=== PATIENT | male | born 1955 | race Caucasian/White ===

== ENCOUNTER 2020-09-07 12:52 | Emergency (ER) | payer MEDICARE, OTHER ==
[2020-09-07] MEDS ORDERED: Sodium Chloride 0.9% 500 ML IV ONE (13:01)
[2020-09-07] MEDS ORDERED: Ketorolac 30 MG/ML SDV IVPUSH ONE (13:02)
[2020-09-07] MEDS ORDERED: Meclizine 25 MG Tab PO ONE (13:03)
[2020-09-07] MEDS ORDERED: Metoclopramide 10 MG/2 ML SDV IVPUSH ONE (13:03)
[2020-09-07] MEDS ORDERED: diphenhydrAMINE 50 MG/ML SDV IVPUSH ONE (13:03)
[2020-09-07 13:09] VITALS: BP 147/96; PULSE 107
--- NOTE | 2020-09-07 13:11 | EDM.PDOC ---
ED HPI GENERAL MEDICAL PROBLEM - General Chief Complaint: Neuro Symptoms/Deficits Stated Complaint: DIZZYNESS, HEADACHE Time Seen by Provider: 09/07/20 13:11 Source of Information: Reports: Patient History Limitations: Reports: No Limitations - History of Present Illness INITIAL COMMENTS - FREE TEXT/NARRATIVE: 65 yo gentleman who presented to the ER with severe dizziness and headache that started gradually and seem to be getting worsen. Indicates that symptoms started gradually and got progressively worse. Rates headache as 10/10. No chest pain, fever. Reports feeling very dizzy. No vomiting, ear pain or neck pain. No SOB. Presented to the ER due to worsening symptoms worsen Onset: Today Onset Date: 09/07/20 Duration: Day(s): (started earlier today) Location: Reports: Head Quality: Reports: Ache Severity: Severe Improves with: Reports: None Worsens with: Reports: None Associated Symptoms: Reports: Headaches headache Pain Score (Numeric/FACES): 10 - Related Data Allergies Allergy/AdvReac Type Severity Reaction Status Date / Time No Known Allergies Allergy Verified 05/18/16 14:23 Home Meds: Home Meds Aspirin 81 mg PO DAILY 05/18/16 [History] Naproxen 500 mg PO BID #15 tablet 05/18/16 [Rx] Sucralfate [Carafate] 1 gm PO QIDACANDBED #20 ml 05/18/16 [Rx] Meclizine [Antivert] 25 mg PO Q6H PRN #30 tab 09/07/20 [Rx] Metoprolol Tartrate [Lopressor] 12.5 mg PO BID #30 tab 09/07/20 [Rx] traMADol [Ultram] 50 mg PO Q6H PRN #20 tab 09/07/20 [Rx] Past Medical History HEENT History: Reports: Impaired Vision Cardiovascular History: Reports: High Cholesterol Respiratory History: Reports: Sleep Apnea Musculoskeletal History: Reports: Arthritis, Fracture - Past Surgical History Musculoskeletal Surgical History: Reports: Arthroscopic Knee ED ROS GENERAL - Review of Systems Review Of Systems: See Below Constitutional: Reports: No Symptoms HEENT: Reports: No Symptoms Respiratory: Reports: No Symptoms Cardiovascular: Reports: No Symptoms Endocrine: Reports: No Symptoms GI/Abdominal: Reports: No Symptoms : Reports: No Symptoms Musculoskeletal: Reports: No Symptoms Skin: Reports: No Symptoms Neurological: Reports: Dizziness, Headache Psychiatric: Reports: No Symptoms Hematologic/Lymphatic: Reports: No Symptoms Immunologic: Reports: No Symptoms ED EXAM, NEURO - Physical Exam Exam: See Below Exam Limited By: No Limitations General Appearance: Alert, WD/WN, No Apparent Distress Eye Exam: Bilateral Eye: EOMI, PERRL Ears: Normal External Exam, Normal Canal, Hearing Grossly Normal, Normal TMs Nose: Normal Inspection, Normal Mucosa, No Blood Throat/Mouth: Normal Inspection, Normal Lips, Normal Teeth, Normal Gums Head Exam: Atraumatic, Normocephalic Neck: Normal Inspection, Supple, Non-Tender, Full Range of Motion Respiratory/Chest: No Respiratory Distress, Lungs Clear, Normal Breath Sounds Cardiovascular: Normal Peripheral Pulses, Regular Rate, Rhythm, No Edema, No Murmur GI/Abdominal: Normal Bowel Sounds, Soft, Non-Tender, No Organomegaly Neurological: Alert, Normal Mood/Affect, Normal Dorsiflexion, CN II-XII Intact, Normal Plantar Flexion, Normal Gait Back Exam: Normal Inspection, Full Range of Motion Extremities: Normal Inspection, Normal Range of Motion, Non-Tender Psychiatric: Normal Affect, Normal Mood Skin Exam: Warm, Dry, Intact, Normal Color, No Rash Course - Vital Signs Last Recorded V/S: Last Vital Signs Temp 36.7 C 09/07/20 13:05 Pulse 107 H 09/07/20 13:05 Resp 19 09/07/20 13:05 BP 147/96 H 09/07/20 13:05 Pulse Ox 95 09/07/20 13:05 Orthostatic Blood Pressure [ 146/60 Standing] Orthostatic Blood Pressure [ 124/81 Sitting] Orthostatic Blood Pressure [ 135/65 Supine] - Orders/Labs/Meds Orders: Active Orders 24 hr Category Date Time Status EKG Documentation Completion [RC] ASDIRECTED Care 09/07/20 13:01 Active Orthostatic Vital Signs [RC] ASDIRECTED Care 09/07/20 13:01 Active CXR [Chest 1V Frontal] [CR] Stat Exams 09/07/20 13:47 Taken Head wo Cont [CT] Stat Exams 09/07/20 13:00 Taken UA W/MICROSCOPIC [URIN] Stat Lab 09/07/20 12:59 Ordered EKG 12 Lead [EK] Routine Ther 09/07/20 13:00 Ordered Labs: Laboratory Tests 01/02/21 01/02/21 01/02/21 Range/Units 13:35 13:40 13:40 WBC 6.1 (3.2-10.1) x10-3/uL RBC 4.93 (3.90-5.90) x10(6)uL Hgb 14.9 (12.9-17.7) g/dL Hct 46.4 (38.3-50.1) % MCV 94.1 (80.8-98.7) fL MCH 30.3 (27.0-33.3) pg MCHC 32.2 (28.7-35.3) g/dL RDW 14.6 (12.4-15.0) % Plt Count 193 (117-477) x10(3)uL MPV 8.7 (6.7-11.0) fL Neut % (Auto) 68.8 (40.3-71.8) % Lymph % (Auto) 19.3 (15.8-45.3) % Dent % (Auto) 9.8 (5.5-15.2) % Eos % (Auto) 1.4 (0.1-6.8) % Baso % (Auto) 0.7 (0.3-3.8) % Neut # (Auto) 4.2 (1.7-6.9) x10-3/uL Lymph # (Auto) 1.2 (0.5-4.5) x10-3/uL [place] # (Auto) 0.6 (0.0-1.2) x10-3/uL Eos # (Auto) 0.1 (0.0-0.6) x10-3/uL Baso # (Auto) 0.0 (0.0-0.3) x10-3/uL Sodium (135-145) mmol/L Potassium (3.5-5.3) mmol/L Chloride (100-110) mmol/L Carbon Dioxide (21-32) mmol/L BUN (7-18) mg/dL Creatinine (0.70-1.30) mg/dL Est Cr Clr Drug Dosing Estimated GFR (MDRD) (>60) BUN/Creatinine Ratio (9-20) Glucose (80-116) mg/dL Calcium (8.6-10.2) mg/dL Magnesium 1.8 (1.8-2.5) mg/dL Total Bilirubin (0.1-1.3) mg/dL AST (5-25) IU/L ALT (12-36) U/L Alkaline Phosphatase (56-112) IU/L Troponin I 6.2 (4.0-60.3) pg/mL NT-Pro-B Natriuret Pep (<=125) pg/mL Total Protein (6.0-8.0) g/dL Albumin (3.2-4.6) g/dL Globulin g/dL Albumin/Globulin Ratio TSH, Ultra Sensitive (0.36-3.74) IU/mL 09/07/20 09/07/20 09/07/20 Range/Units 13:40 13:40 14:18 WBC (3.2-10.1) x10-3/uL RBC (3.90-5.90) x10(6)uL Hgb (12.9-17.7) g/dL Hct (38.3-50.1) % MCV (80.8-98.7) fL MCH (27.0-33.3) pg MCHC (28.7-35.3) g/dL RDW (12.4-15.0) % Plt Count (117-477) x10(3)uL MPV (6.7-11.0) fL Neut % (Auto) (40.3-71.8) % Lymph % (Auto) (15.8-45.3) % [place] % (Auto) (5.5-15.2) % Eos % (Auto) (0.1-6.8) % Baso % (Auto) (0.3-3.8) % Neut # (Auto) (1.7-6.9) x10-3/uL Lymph # (Auto) (0.5-4.5) x10-3/uL [place] # (Auto) (0.0-1.2) x10-3/uL Eos # (Auto) (0.0-0.6) x10-3/uL Baso # (Auto) (0.0-0.3) x10-3/uL Sodium 140 (135-145) mmol/L Potassium 4.1 (3.5-5.3) mmol/L Chloride 104 (100-110) mmol/L Carbon Dioxide 26 (21-32) mmol/L BUN 15 (7-18) mg/dL Creatinine 0.8 (0.70-1.30) mg/dL Est Cr Clr Drug Dosing TNP Estimated GFR (MDRD) > 60 (>60) BUN/Creatinine Ratio 18.8 (9-20) Glucose 118 H (80-116) mg/dL Calcium 8.3 L (8.6-10.2) mg/dL Magnesium (1.8-2.5) mg/dL Total Bilirubin 0.8 (0.1-1.3) mg/dL AST 19 (5-25) IU/L ALT 38 H (12-36) U/L Alkaline Phosphatase 72 (56-112) IU/L Troponin I (4.0-60.3) pg/mL NT-Pro-B Natriuret Pep 428 H (<=125) pg/mL Total Protein 7.0 (6.0-8.0) g/dL Albumin 3.4 (3.2-4.6) g/dL Globulin 3.6 g/dL Albumin/Globulin Ratio 0.9 TSH, Ultra Sensitive 1.68 (0.36-3.74) IU/mL Meds: Medications Discontinued Medications Generic Name Dose Route Start Last Admin Trade Name Freq PRN Reason Stop Dose Admin Diltiazem HCl 5 mg 09/07/20 13:48 09/07/20 13:55 Diltiazem IVPUSH 09/07/20 13:49 5 mg ONETIME ONE Administration Diltiazem HCl 10 mg 09/07/20 14:17 09/07/20 14:26 Diltiazem IVPUSH 09/07/20 14:18 10 mg ONETIME ONE Administration Diphenhydramine HCl 25 mg 09/07/20 13:03 09/07/20 13:12 Benadryl IVPUSH 09/07/20 13:04 25 mg ONETIME ONE Administration Sodium Chloride 500 mls @ 500 mls/hr 09/07/20 13:01 09/07/20 13:11 Normal Saline IV 09/07/20 14:00 500 mls/hr .BOLUS ONE Administration Ketorolac Tromethamine 30 mg 09/07/20 13:02 09/07/20 13:11 Toradol IVPUSH 09/07/20 13:03 30 mg ONETIME ONE Administration Meclizine HCl 25 mg 09/07/20 13:03 09/07/20 13:12 Antivert PO 09/07/20 13:04 25 mg ONETIME ONE Administration Metoclopramide HCl 10 mg 09/07/20 13:03 09/07/20 13:12 Reglan IVPUSH 09/07/20 13:04 10 mg ONETIME ONE Administration Departure - Departure Time of Disposition: 16:01 Disposition: Home, Self-Care 01 Condition: Good Clinical Impression: Vertigo, Headache disorder, Atrial fibrillation with RVR - Discharge Information Prescriptions: Meclizine [Antivert] 25 mg PO Q6H PRN #30 tab PRN Reason: Dizziness Metoprolol Tartrate [Lopressor] 12.5 mg PO BID #30 tab traMADol [Ultram] 50 mg PO Q6H PRN #20 tab PRN Reason: Headache Instructions: Migraine Headache, [id number], Vertigo, [id number], Atrial Fi brillation, [id number] Referrals: Hakeem Chávez MD [Primary Care Provider] - Forms: ED Department Discharge Additional Instructions: Follow with PCP within 1 week Return if symptoms worsen Meclizine for dizziness Tramadol for headache Return if symptoms worsen Call your Physician or Return to Emergency Department if: * Your condition worsens in any way. * You develop fever greater than 100.4. * You have vomitting that does not stop with medications. * You have pain that is not controlled with medications. Sepsis Event Note (ED) - Evaluation Sepsis Screening Result: No Definite Risk - Focused Exam Vital Signs: Vital Signs Temp Pulse Resp BP Pulse Ox 09/07/20 13:05 36.7 C 107 H 19 147/96 H 95 - Problem List & Annotations (1) Vertigo SNOMED Code(s): 799004117 Code(s): R42 - DIZZINESS AND GIDDINESS Status: Acute Current Visit: Yes (2) Atrial fibrillation with RVR SNOMED Code(s): 482354087481164 Code(s): I48.91 - UNSPECIFIED ATRIAL FIBRILLATION Status: Acute Current Visit: Yes (3) Headache disorder SNOMED Code(s): 216294787 Code(s): R51.9 - HEADACHE, UNSPECIFIED Status: Acute Current Visit: Yes - Problem List Review Problem List Initiated/Reviewed/Updated: Yes - My Orders Last 24 Hours: My Active Orders 09/07/20 12:59 UA W/MICROSCOPIC [URIN] Stat 09/07/20 13:00 Head wo Cont [CT] Stat EKG 12 Lead [EK] Routine 09/07/20 13:01 EKG Documentation Completion [RC] ASDIRECTED Orthostatic Vital Signs [RC] ASDIRECTED 09/07/20 13:47 CXR [Chest 1V Frontal] [CR] Stat - Assessment/Plan Last 24 Hours: My Active Orders 09/07/20 12:59 UA W/MICROSCOPIC [URIN] Stat 09/07/20 13:00 Head wo Cont [CT] Stat EKG 12 Lead [EK] Routine 09/07/20 13:01 EKG Documentation Completion [RC] ASDIRECTED Orthostatic Vital Signs [RC] ASDIRECTED 09/07/20 13:47 CXR [Chest 1V Frontal] [CR] Stat
[2020-09-07] MEDS ORDERED: Diltiazem 25 MG/5 ML SDV IVPUSH ONE ×2 (13:48→14:17)
== END 2020-09-07 16:16 | disposition home or self-care (01) ==
LOC: FB.ED 12:52
DX: R51.9 Headache, unspecified (principal); I48.91 Unspecified atrial fibrillation; Z79.82 Long term (current) use of aspirin
CPT/HCPCS: 36415; 70450; 71045; 80053; 83735; 83880; 84443; 84484; 85025; 93005; 96374; 96375; 96376; 99284; A9270; J1200; J1885; J2765; J3490; J7040

== ENCOUNTER 2020-09-08 15:38 | Inpatient (IN) | payer MEDICARE, OTHER ==
--- NOTE | 2020-09-08 15:59 | EDM.PDOC ---
ED HPI GENERAL MEDICAL PROBLEM - General Stated Complaint: ??? Time Seen by Provider: 09/08/20 16:00 Source of Information: Reports: Patient History Limitations: Reports: No Limitations - History of Present Illness INITIAL COMMENTS - FREE TEXT/NARRATIVE: 65 yo gentleman who was seen in the ER yesterday and evaluated for Headaches and found to have New onset Atrial fibrillation with RVR. Symptoms resolved with conservative Rx and patient was discharged. Return today with Pounding headache which he rates as 8/10. Notably CT Head done yesterday showed no acute intracranial pathology. Patient returned to the ER for further evaluation. Also c/o feeling dizzy with the headache. No chest pain Onset: Today Onset Date: 09/07/20 Location: Reports: Head Quality: Reports: Ache Worsens with: Reports: Movement Associated Symptoms: Reports: No Other Symptoms - Related Data Allergies Allergy/AdvReac Type Severity Reaction Status Date / Time No Known Allergies Allergy Verified 05/18/16 14:23 Home Meds: Home Meds Aspirin 81 mg PO DAILY 05/18/16 [History] Naproxen 500 mg PO BID #15 tablet 05/18/16 [Rx] Sucralfate [Carafate] 1 gm PO QIDACANDBED #20 ml 05/18/16 [Rx] Meclizine [Antivert] 25 mg PO Q6H PRN #30 tab 09/07/20 [Rx] Metoprolol Tartrate [Lopressor] 12.5 mg PO BID #30 tab 09/07/20 [Rx] traMADol [Ultram] 50 mg PO Q6H PRN #20 tab 09/07/20 [Rx] Past Medical History HEENT History: Reports: Impaired Vision Cardiovascular History: Reports: High Cholesterol Respiratory History: Reports: Sleep Apnea Other Respiratory History: uses Cpap at night Musculoskeletal History: Reports: Arthritis, Fracture - Past Surgical History Musculoskeletal Surgical History: Reports: Arthroscopic Knee Social & Family History - Family History Family Medical History: No Pertinent Family History - Caffeine Use Caffeine Use: Reports: Coffee ED ROS GENERAL - Review of Systems Review Of Systems: See Below Constitutional: Reports: Malaise HEENT: Reports: No Symptoms Respiratory: Reports: No Symptoms Cardiovascular: Reports: No Symptoms Endocrine: Reports: No Symptoms GI/Abdominal: Reports: No Symptoms : Reports: No Symptoms Musculoskeletal: Reports: No Symptoms Skin: Reports: No Symptoms Neurological: Reports: Headache Psychiatric: Reports: No Symptoms Hematologic/Lymphatic: Reports: No Symptoms Immunologic: Reports: No Symptoms - Physical Exam Exam: See Below Exam Limited By: No Limitations General Appearance: Alert, WD/WN, No Apparent Distress Eye Exam: Bilateral Eye: PERRL Ears: Normal External Exam, Normal Canal, Hearing Grossly Normal, Normal TMs Throat/Mouth: Normal Inspection, Normal Lips, Normal Teeth Head Exam: Atraumatic, Normocephalic Neck: Normal Inspection, Supple, Non-Tender, Full Range of Motion Respiratory/Chest: No Respiratory Distress, Lungs Clear, Normal Breath Sounds Cardiovascular: Normal Peripheral Pulses, Regular Rate, Rhythm, No Edema GI/Abdominal: Normal Bowel Sounds, Soft, Non-Tender, No Organomegaly Neuro Exam (Abbreviated): Alert, Oriented, CN II-XII Intact, Normal Cognition, Normal Gait Extremities: Normal Inspection, Normal Range of Motion, Non-Tender, No Pedal Edema Psychiatric: Normal Affect, Normal Mood Skin Exam: Warm, Dry, Intact, Normal Color Course - Orders/Labs/Meds Orders: Active Orders 24 hr Category Date Time Status Admission Diagnosis [ADT] Stat ADT 09/08/20 18:31 Ordered Admission Status [Patient Status] [ADT] Routine ADT 09/08/20 18:32 Active EKG Documentation Completion [RC] ASDIRECTED Care 09/08/20 16:01 Active Sodium Chloride 0.9% [Normal Saline] 1,000 ml Med 09/08/20 18:15 Active IV ASDIRECTED EKG 12 Lead [EK] Routine Ther 09/08/20 16:00 Ordered Medication Orders Sodium Chloride (Normal Saline) 1,000 mls @ 100 mls/hr IV ASDIRECTED JAMES Labs: Laboratory Tests 09/08/20 09/08/20 09/08/20 Range/Units 16:15 16:15 16:15 WBC 8.3 (3.2-10.1) x10-3/uL RBC 5.00 (3.90-5.90) x10(6)uL Hgb 15.1 (12.9-17.7) g/dL Hct 46.9 (38.3-50.1) % MCV 93.8 (80.8-98.7) fL MCH 30.3 (27.0-33.3) pg MCHC 32.3 (28.7-35.3) g/dL RDW 14.3 (12.4-15.0) % Plt Count 203 (117-477) x10(3)uL MPV 8.4 (6.7-11.0) fL Neut % (Auto) 74.5 H (40.3-71.8) % Lymph % (Auto) 13.6 L (15.8-45.3) % [place] % (Auto) 10.6 (5.5-15.2) % Eos % (Auto) 0.6 (0.1-6.8) % Baso % (Auto) 0.7 (0.3-3.8) % Neut # (Auto) 6.2 (1.7-6.9) x10-3/uL Lymph # (Auto) 1.1 (0.5-4.5) x10-3/uL [place] # (Auto) 0.9 (0.0-1.2) x10-3/uL Eos # (Auto) 0.0 (0.0-0.6) x10-3/uL Baso # (Auto) 0.1 (0.0-0.3) x10-3/uL Sodium 137 (135-145) mmol/L Potassium 3.9 (3.5-5.3) mmol/L Chloride 102 (100-110) mmol/L Carbon Dioxide 27 (21-32) mmol/L BUN 11 (7-18) mg/dL Creatinine 0.8 (0.70-1.30) mg/dL Est Cr Clr Drug Dosing TNP Estimated GFR (MDRD) > 60 (>60) BUN/Creatinine Ratio 13.8 (9-20) Glucose 106 (80-116) mg/dL Calcium 8.2 L (8.6-10.2) mg/dL Total Bilirubin 0.7 (0.1-1.3) mg/dL AST 17 D (5-25) IU/L ALT 34 D (12-36) U/L Alkaline Phosphatase 68 (56-112) IU/L Troponin I 7.0 (4.0-60.3) pg/mL Total Protein 7.3 (6.0-8.0) g/dL Albumin 3.5 (3.2-4.6) g/dL Globulin 3.8 g/dL Albumin/Globulin Ratio 0.9 Meds: Medications Generic Name Dose Route Start Last Admin Trade Name Dolores PRN Reason Stop Dose Admin Sodium Chloride 1,000 mls @ 100 mls/hr 09/08/20 18:15 Normal Saline IV ASDIRECTED JAMES Discontinued Medications Generic Name Dose Route Start Last Admin Trade Name Dolores PRN Reason Stop Dose Admin Diltiazem HCl 60 mg 09/08/20 18:14 09/08/20 18:30 Cardizem PO 09/08/20 18:15 60 mg ONETIME ONE Administration Diphenhydramine HCl 25 mg 09/08/20 16:02 09/08/20 16:27 Benadryl IVPUSH 09/08/20 16:03 25 mg ONETIME ONE Administration Hydromorphone HCl 0.5 mg 09/08/20 17:02 09/08/20 17:35 Dilaudid IVPUSH 09/08/20 17:03 0.5 mg ONETIME ONE Administration Sodium Chloride 1,000 mls @ 1,000 mls/hr 09/08/20 16:00 09/08/20 16:24 Normal Saline IV 09/08/20 16:59 1,000 mls/hr .BOLUS ONE Administration Ketorolac Tromethamine 30 mg 09/08/20 16:01 09/08/20 16:31 Toradol IVPUSH 09/08/20 16:02 30 mg ONETIME ONE Administration Metoclopramide HCl 10 mg 09/08/20 16:01 09/08/20 16:28 Reglan IVPUSH 09/08/20 16:02 10 mg ONETIME ONE Administration Morphine Sulfate 2 mg 09/08/20 18:16 09/08/20 18:30 Morphine IVPUSH 09/08/20 18:17 2 mg ONETIME ONE Administration Departure - Departure Time of Disposition: 18:29 Disposition: Admitted As Inpatient 65 Condition: Good Clinical Impression: Atrial fibrillation with RVR, Headache disorder - Discharge Information *PRESCRIPTION DRUG MONITORING PROGRAM REVIEWED*: No *COPY OF PRESCRIPTION DRUG MONITORING REPORT IN PATIENT GINETTE: No Referrals: Hakeem Chávez MD [Primary Care Provider] - - My Orders Last 24 Hours: My Active Orders 09/08/20 16:00 EKG 12 Lead [EK] Routine 09/08/20 16:01 EKG Documentation Completion [RC] ASDIRECTED 09/08/20 18:15 Sodium Chloride 0.9% [Normal Saline] 1,000 ml IV ASDIRECTED 09/08/20 18:31 Admission Diagnosis [ADT] Stat 09/08/20 18:32 Admission Status [Patient Status] [ADT] Routine - Assessment/Plan Last 24 Hours: My Active Orders 09/08/20 16:00 EKG 12 Lead [EK] Routine 09/08/20 16:01 EKG Documentation Completion [RC] ASDIRECTED 09/08/20 18:15 Sodium Chloride 0.9% [Normal Saline] 1,000 ml IV ASDIRECTED 09/08/20 18:31 Admission Diagnosis [ADT] Stat 09/08/20 18:32 Admission Status [Patient Status] [ADT] Routine
[2020-09-08] MEDS ORDERED: Sodium Chloride 0.9% 1,000 ML IV ONE (16:00)
[2020-09-08] MEDS ORDERED: Metoclopramide 10 MG/2 ML SDV IVPUSH ONE (16:01)
[2020-09-08] MEDS ORDERED: Ketorolac 30 MG/ML SDV IVPUSH ONE (16:01)
[2020-09-08] MEDS ORDERED: diphenhydrAMINE 50 MG/ML SDV IVPUSH ONE (16:02)
[2020-09-08] MEDS ORDERED: HYDROmorphone 2 MG/ML SDV IVPUSH ONE (17:02)
[2020-09-08] MEDS ORDERED: Diltiazem IR 60 MG Tab PO ONE (18:14)
[2020-09-08] MEDS ORDERED: Morphine 2 MG/ML SYRINGE IVPUSH ONE (18:16)
[2020-09-08] MEDS ORDERED: Ondansetron 4 MG/2 ML SDV IV PRN (19:30)
[2020-09-08] MEDS ORDERED: Sodium Chloride 0.9% 1,000 ML IV SCH (19:30)
[2020-09-08] MEDS ORDERED: traMADol 50 MG Tab PO PRN (19:36)
[2020-09-08] MEDS ORDERED: Meclizine 25 MG Tab PO PRN (19:36)
[2020-09-08] MEDS ORDERED: Diltiazem IR 30 MG Tab PO SCH (20:00)
[2020-09-08] MEDS: Aspirin 81 MG Tab.Chew PO SCH (20:26)
[2020-09-08] MEDS: Heparin Sodium 5,000 Units/ML Vial SUBCUT SCH (20:26)
[2020-09-08] MEDS: Sodium Chloride 0.9% 1,000 ML IV SCH (20:26)
[2020-09-09] MEDS: Metoprolol Tartrate 25 MG Tab PO SCH ×3 (00:32→18:52)
[2020-09-09] MEDS: Sucralfate 1 GM Tab PO SCH ×4 (00:32→17:04)
[2020-09-09] MEDS: Acetaminophen/HYDROcodone 325-5 MG Tab PO PRN ×2 (04:19→14:35)
[2020-09-09] MEDS: Heparin Sodium 5,000 Units/ML Vial SUBCUT SCH (04:24)
[2020-09-09] MEDS: Sodium Chloride 0.9% 1,000 ML IV SCH ×2 (06:06→16:59)
[2020-09-09] MEDS ORDERED: Diltiazem IR 30 MG Tab PO SCH (08:00)
[2020-09-09] MEDS ORDERED: Ketorolac 30 MG/ML SDV IVPUSH PRN (08:06)
[2020-09-09] MEDS: Aspirin 81 MG Tab.Chew PO SCH (09:04)
[2020-09-09] MEDS: Morphine 2 MG/ML SYRINGE IVPUSH PRN ×2 (09:14→14:29)
--- NOTE | 2020-09-09 09:25 | PCM.HP.2 ---
H&P History of Present Illness - General Date of Service: 09/09/20 Admit Problem/Dx: Admission Diagnosis/Problem Admission Diagnosis/Problem Atrial fibrillation Source of Information: Patient, Old Records History Limitations: Reports: No Limitations - History of Present Illness Initial Comments - Free Text/Narative: This is a 65-year-old male patient has 4 day history of headaches coming on the left side. He was seen in emergency room 2 days ago and given some medication s hots. He was sent home and he came back yesterday still with headache. When he came to the ER the first time he was diagnosed with atrial fib and sent home on some metoprolol. He does have a history of sleep apnea but states he is faithful about using his apparatus. He said recess some dizziness which is a spinning. He has chronic hearing loss and tinnitus but nothing is changed. He denies diplopi a, blurred vision, dysphagia, aphasia, lateralizing weakness. He is not a headache suffer he states. He has a little nausea but no vomiting. No family history for migraines. Patient denies any chest pain, shortness of breath or palpitations. Headache Pain Score (Numeric/FACES): 8 - Related Data Allergies/Adverse Reactions: Allergies Allergy/AdvReac Type Severity Reaction Status Date / Time No Known Allergies Allergy Verified 09/08/20 18:36 Home Medications: Home Meds Aspirin 81 mg PO DAILY 05/18/16 [History] Naproxen 500 mg PO BID #15 tablet 05/18/16 [Rx] Sucralfate [Carafate] 1 gm PO QIDACANDBED #20 ml 05/18/16 [Rx] Meclizine [Antivert] 25 mg PO Q6H PRN #30 tab 09/07/20 [Rx] Metoprolol Tartrate [Lopressor] 12.5 mg PO BID #30 tab 09/07/20 [Rx] traMADol [Ultram] 50 mg PO Q6H PRN #20 tab 09/07/20 [Rx] Past Medical History HEENT History: Reports: Impaired Vision Cardiovascular History: Reports: High Cholesterol, Other (See Below) Other Cardiovascular History: Episode irregular rhythm. Respiratory History: Reports: Sleep Apnea Other Respiratory History: Uses CPAP at night. History of pneumonia. Gastrointestinal History: Reports: Other (See Below) Other Gastrointestinal History: Stomach ulcers in high school. Musculoskeletal History: Reports: Arthritis, Fracture, Other (See Below) Other Musculoskeletal History: Broken wrists, toes---related to sports in high school. Endocrine/Metabolic History: Reports: Obesity/BMI 30+ - Infectious Disease History Infectious Disease History: Reports: Chicken Pox, Measles, Mumps - Past Surgical History HEENT Surgical History: Reports: Other (See Below) Other HEENT Surgeries/Procedures: Broken nose---reset surgically, 1967. GI Surgical History: Reports: Appendectomy Musculoskeletal Surgical History: Reports: Arthroscopic Knee, Other (See Below) Other Musculoskeletal Surgeries/Procedures:: Both knees. Social & Family History - Family History Family Medical History: No Pertinent Family History - Tobacco Use Tobacco Use Status *Q: Former Tobacco User Used Tobacco, but Quit: Yes Month/Year Tobacco Last Used: 1993 - Caffeine Use Caffeine Use: Reports: Coffee Other Caffeine Use: 2 cups coffee per day. - Alcohol Use Days Per Week of Alcohol Use: 7 Number of Drinks Per Day: 1 Total Drinks Per Week: 7 - Recreational Drug Use Recreational Drug Use: No H&P Review of Systems - Review of Systems: Review Of Systems: See Below General: Reports: No Symptoms HEENT: Reports: Vertigo. Denies: Sinus Congestion, Sore Throat Pulmonary: Reports: No Symptoms Cardiovascular: Reports: No Symptoms Gastrointestinal: Reports: Nausea Genitourinary: Reports: No Symptoms Musculoskeletal: Reports: No Symptoms Skin: Reports: No Symptoms Psychiatric: Reports: No Symptoms Neurological: Reports: Dizziness, Headache. Denies: Difficulty Walking, Change in Speech, Gait Disturbance Hematologic/Lymphatic: Reports: No Symptoms Immunologic: Reports: No Symptoms Exam - Exam Exam: See Below - Vital Signs Vital Signs: Last Vital Signs Temp 97.6 F 09/08/20 21:25 Pulse 104 H 09/09/20 09:04 Resp 16 09/09/20 04:30 BP 140/98 H 09/09/20 09:04 Pulse Ox 95 09/09/20 04:30 Weight: 299 lb 1.6 oz - Exam General: Alert, Oriented, Cooperative HEENT: PERRLA, Hearing Intact, Mucosa Moist & [place], Posterior Pharynx Clear, TMs Clear Neck: Supple, Trachea Midline. No: Carotid Bruit Lungs: Clear to Auscultation, Normal Respiratory Effort Cardiovascular: Regular Rate, Irregular Rhythm. No: Systolic Murmur, Diastolic Murmur GI/Abdominal Exam: Normal Bowel Sounds, Soft, Non-Tender, No Organomegaly, No Distention, No Abnormal Bruit, No Mass Back Exam: Normal Inspection Extremities: Normal Inspection, Normal Range of Motion, Non-Tender, No Pedal Edema Skin: Warm, Dry, Intact Neurological: Cranial Nerves Intact, Reflexes Equal Bilateral, Strength Equal Bilateral, Normal Gait, Normal Speech, Normal Tone Neuro Extensive - Mental Status: Alert, Oriented x3, Normal Mood/Affect, Normal Cognition, Memory Intact Psychiatric: Alert, Normal Affect, Normal Mood - Patient Data Lab Results Last 24 hrs: Laboratory Results - last 24 hr 09/08/20 09/08/20 09/08/20 Range/Units 16:15 16:15 16:15 WBC 8.3 (3.2-10.1) x10-3/uL RBC 5.00 (3.90-5.90) x10(6)uL Hgb 15.1 (12.9-17.7) g/dL Hct 46.9 (38.3-50.1) % MCV 93.8 (80.8-98.7) fL MCH 30.3 (27.0-33.3) pg MCHC 32.3 (28.7-35.3) g/dL RDW 14.3 (12.4-15.0) % Plt Count 203 (117-477) x10(3)uL MPV 8.4 (6.7-11.0) fL Neut % (Auto) 74.5 H (40.3-71.8) % Lymph % (Auto) 13.6 L (15.8-45.3) % Benzie % (Auto) 10.6 (5.5-15.2) % Eos % (Auto) 0.6 (0.1-6.8) % Baso % (Auto) 0.7 (0.3-3.8) % Neut # (Auto) 6.2 (1.7-6.9) x10-3/uL Lymph # (Auto) 1.1 (0.5-4.5) x10-3/uL Benzie # (Auto) 0.9 (0.0-1.2) x10-3/uL Eos # (Auto) 0.0 (0.0-0.6) x10-3/uL Baso # (Auto) 0.1 (0.0-0.3) x10-3/uL Sodium 137 (135-145) mmol/L Potassium 3.9 (3.5-5.3) mmol/L Chloride 102 (100-110) mmol/L Carbon Dioxide 27 (21-32) mmol/L BUN 11 (7-18) mg/dL Creatinine 0.8 (0.70-1.30) mg/dL Est Cr Clr Drug Dosing TNP Estimated GFR (MDRD) > 60 (>60) BUN/Creatinine Ratio 13.8 (9-20) Glucose 106 (80-116) mg/dL Calcium 8.2 L (8.6-10.2) mg/dL Total Bilirubin 0.7 (0.1-1.3) mg/dL AST 17 D (5-25) IU/L ALT 34 D (12-36) U/L Alkaline Phosphatase 68 (56-112) IU/L Troponin I 7.0 (4.0-60.3) pg/mL Total Protein 7.3 (6.0-8.0) g/dL Albumin 3.5 (3.2-4.6) g/dL Globulin 3.8 g/dL Albumin/Globulin Ratio 0.9 TSH, Ultra Sensitive (0.36-3.74) IU/mL SARS-CoV-2 RNA (EVE) (NEGATIVE) 09/08/20 09/09/20 09/09/20 Range/Units 19:17 08:30 08:30 WBC (3.2-10.1) x10-3/uL RBC (3.90-5.90) x10(6)uL Hgb (12.9-17.7) g/dL Hct (38.3-50.1) % MCV (80.8-98.7) fL MCH (27.0-33.3) pg MCHC (28.7-35.3) g/dL RDW (12.4-15.0) % Plt Count (117-477) x10(3)uL MPV (6.7-11.0) fL Neut % (Auto) (40.3-71.8) % Lymph % (Auto) (15.8-45.3) % Benzie % (Auto) (5.5-15.2) % Eos % (Auto) (0.1-6.8) % Baso % (Auto) (0.3-3.8) % Neut # (Auto) (1.7-6.9) x10-3/uL Lymph # (Auto) (0.5-4.5) x10-3/uL Benzie # (Auto) (0.0-1.2) x10-3/uL Eos # (Auto) (0.0-0.6) x10-3/uL Baso # (Auto) (0.0-0.3) x10-3/uL Sodium (135-145) mmol/L Potassium (3.5-5.3) mmol/L Chloride (100-110) mmol/L Carbon Dioxide (21-32) mmol/L BUN (7-18) mg/dL Creatinine (0.70-1.30) mg/dL Est Cr Clr Drug Dosing Estimated GFR (MDRD) (>60) BUN/Creatinine Ratio (9-20) Glucose (80-116) mg/dL Calcium (8.6-10.2) mg/dL Total Bilirubin (0.1-1.3) mg/dL AST (5-25) IU/L ALT (12-36) U/L Alkaline Phosphatase (56-112) IU/L Troponin I 7.7 (4.0-60.3) pg/mL Total Protein (6.0-8.0) g/dL Albumin (3.2-4.6) g/dL Globulin g/dL Albumin/Globulin Ratio TSH, Ultra Sensitive 3.86 H (0.36-3.74) IU/mL SARS-CoV-2 RNA (EVE) Negative (NEGATIVE) Result Diagrams: 09/08/20 16:15 09/08/20 16:15 Sepsis Event Note - Evaluation Sepsis Screening Result: No Definite Risk - Focused Exam Vital Signs: Vital Signs Temp Pulse Pulse Resp BP BP Pulse Ox 09/09/20 09:04 104 H 140/98 H 09/09/20 04:30 77 16 123/91 H 95 09/09/20 00:45 79 18 119/85 94 L 09/09/20 00:32 72 135/93 H 09/08/20 21:25 97.6 F 91 18 135/93 H 95 - Problem List (1) Atrial fibrillation with RVR SNOMED Code(s): 178371833071272 ICD Code: I48.91 - UNSPECIFIED ATRIAL FIBRILLATION Status: Acute Current Visit: Yes (2) Headache disorder SNOMED Code(s): 039195676 ICD Code: R51.9 - HEADACHE, UNSPECIFIED Status: Acute Current Visit: Yes (3) Vertigo SNOMED Code(s): 303590720 ICD Code: R42 - DIZZINESS AND GIDDINESS Status: Acute Current Visit: No (4) Sinusitis SNOMED Code(s): 09816758 ICD Code: J32.9 - CHRONIC SINUSITIS, UNSPECIFIED Status: Acute Current Visit: Yes (5) Palliative care status SNOMED Code(s): 507317030 ICD Code: Z51.5 - ENCOUNTER FOR PALLIATIVE CARE Status: Acute Current Visit: Yes Problem List Initiated/Reviewed/Updated: Yes Orders Last 24hrs: Active Orders 24 hr Category Date Time Status Admission Diagnosis [ADT] Stat ADT 09/08/20 18:31 Ordered Admission Status [Patient Status] [ADT] Routine ADT 09/08/20 18:32 Active Patient Status [ADT] Routine ADT 09/08/20 19:30 Active Cardiac Monitoring [RC] 00,08,16 Care 09/08/20 19:32 Active EKG Documentation Completion [RC] ASDIRECTED Care 09/09/20 08:07 Active Oxygen Therapy [RC] .PRN Care 09/08/20 19:30 Active Pulse Oximetry [RC] 00,08,16 Care 09/08/20 19:32 Active Up With Assistance [RC] .PRN Care 09/08/20 19:30 Active Up ad [place] [RC] .PRN Care 09/08/20 19:30 Active Vital Signs [RC] 00,04,08,12,16,20 Care 09/08/20 19:30 Active Heart Healthy Diet [DIET] Diet 09/09/20 Breakfast Active Brain wo Cont [MR] Routine Exams 09/09/20 08:09 Ordered Acetaminophen/HYDROcodone [[place] 325-5 MG] Med 09/08/20 19:30 Active 1 tab PO Q4H PRN Aspirin Med 09/08/20 19:45 Active 81 mg PO DAILY Diltiazem IR [Cardizem] Med 09/09/20 08:00 Active 30 mg PO Q8H Heparin Sodium Med 09/08/20 19:30 Active 5,000 units SUBCUT Q8H Ketorolac [Toradol] Med 09/09/20 08:06 Active 30 mg IVPUSH Q6H PRN Meclizine [Antivert] Med 09/08/20 19:36 Active 25 mg PO Q6H PRN Metoprolol Tartrate [Lopressor] Med 09/08/20 21:00 Active 12.5 mg PO BID Morphine Med 09/08/20 19:48 Active 2 mg IVPUSH Q4H PRN Ondansetron [Zofran] Med 09/08/20 19:30 Active 4 mg IV Q4H PRN Sodium Chloride 0.9% [Normal Saline] 1,000 ml Med 09/08/20 18:15 Active IV ASDIRECTED Sucralfate [Carafate] Med 09/08/20 21:00 Active 1 gm PO QIDACANDBED traMADol [Ultram] Med 09/08/20 19:36 Active 50 mg PO Q6H PRN Antiembolic Hose [OM.PC] Per Unit Routine Oth 09/08/20 19:33 Ordered Sequential Compression Device [OM.PC] Per Unit Routine Oth 09/08/20 19:33 Ordered Resuscitation Status Routine Resus Stat 09/08/20 19:30 Ordered EKG 12 Lead [EK] Routine Ther 09/08/20 16:00 Ordered EKG 12 Lead [EK] Routine Ther 09/09/20 08:07 Ordered Medication Orders Hydrocodone Bitart/Acetaminophen ([place] 325-5 Mg) 1 tab PO Q4H PRN PRN Reason: Pain (moderate 4-6) Last Admin: 09/09/20 04:19 Dose: 1 tab Documented by: DAILY Aspirin (Aspirin) 81 mg PO DAILY [facility] Last Admin: 09/09/20 09:04 Dose: 81 mg Documented by: [id number] Admin: 09/08/20 20:26 Dose: 81 mg Documented by: ELIAN Diltiazem HCl (Cardizem) 30 mg PO Q8H [facility] Last Admin: 09/09/20 09:04 Dose: 30 mg Documented by: [id number] Heparin Sodium (Porcine) (Heparin Sodium) 5,000 units SUBCUT Q8H [facility] Last Admin: 09/09/20 04:24 Dose: 5,000 units Documented by: Admin: 09/08/20 20:26 Dose: 5,000 units Documented by: ELIAN Sodium Chloride (Normal Saline) 1,000 mls @ 100 mls/hr IV ASDIRECTED [facility] Last Admin: 09/09/20 06:06 Dose: 100 mls/hr Documented by: Infusion: 09/09/20 06:06 Dose: 100 mls/hr Documented by: Admin: 09/08/20 20:26 Dose: 100 mls/hr Documented by: ELIAN Ketorolac Tromethamine (Toradol) 30 mg IVPUSH Q6H PRN PRN Reason: Pain Stop: 09/14/20 08:06 Last Admin: 09/09/20 09:12 Dose: 30 mg Documented by: ANGIE Meclizine HCl (Antivert) 25 mg PO Q6H PRN PRN Reason: Dizziness Metoprolol Tartrate (Lopressor) 12.5 mg PO BID [facility] Last Admin: 09/09/20 09:04 Dose: 12.5 mg Documented by: Admin: 09/09/20 00:32 Dose: 12.5 mg Documented by: DAILY Morphine Sulfate (Morphine) 2 mg IVPUSH Q4H PRN PRN Reason: Pain Last Admin: 09/09/20 09:14 Dose: 2 mg Documented by: ANGIE Ondansetron HCl (Zofran) 4 mg IV Q4H PRN PRN Reason: Nausea/Vomiting Sucralfate (Carafate) 1 gm PO QIDACANDBED [facility] Last Admin: 09/09/20 06:49 Dose: 1 gm Documented by: Admin: 09/09/20 00:32 Dose: 1 gm Documented by: DAILY Tramadol HCl (Ultram) 50 mg PO Q6H PRN PRN Reason: Headache Last Admin: 09/09/20 06:49 Dose: 50 mg Documented by: DAILY Assessment/Plan Comment:: 1. Admit inpatient for A. fib 2. Telemetry 3. Cardiac diet 4. Up ad [place]. 5. Reviewed CT scan shows sinusitis but no intracranial hemorrhages or masses. 6. IV medications for headache. 7. Repeat EKG in a.m. If he continues in atrial fibrillation consider anticoagulation to get him to cardiology for cardioversion. 8. MRI because of the continuing headache new-onset 9. Augmentin for sinusitis - Mortality Measure Prognosis:: Good
[2020-09-09] MEDS: Amoxicillin/Clavulanate K 500-125 MG Tab PO SCH ×3 (10:36→18:53)
[2020-09-09] MEDS: Apixaban 5 MG Tab PO SCH ×2 (13:41→18:54)
[2020-09-09] MEDS ORDERED: Gadoteridol 279.3 MG/ML 20 ML SDV IV ONE (13:50)
[2020-09-09] MEDS ORDERED: Ibuprofen 800 MG Tab PO SCH (14:00)
--- NOTE | 2020-09-09 18:25 | PCM.SN.2 ---
- Free Text/Narrative Note: MRI with contrast and MRA shows leptomeningeal enhancement. Which could be from her old sarcoidosis, malignancy, infection. Patient has no history of malignancy. His symptoms are gone as far as headachestill A. fib and on anticoagulation. Ibuprofen did help. Discussed care with neurologist. They want to see him for a outpatient LP and visit. We'll set this up in the clinic. He will go home on Eliquis and metoprolol We'll have the phone nurses contact him and give him some urge to get the Eliquis cheaper.
--- NOTE | 2020-09-09 18:33 | PCM.DCSUM1 ---
Discharge Summary - Hospital Course Free Text/Narrative:: Hospital course-patient was admitted on narcotic pain medication and fluids. CT showed possible ischemia with possible sinusitis. In the morning the patient did not want narcotics because he had some relatives that had problems with them. Gave him a shot of Toradol and it helped his headache. I proceeding to MRI of that showed some increased enhancement in the occiput of his brain. The radiologist recommended a MRA and contrast which showed increase in lep tomeningeal enhancement. The differential is sarcoidosis, infection, lymphoma. I discussed the results of the patient. He said he had a little bit of visual issues but headache was gone. He had A. fib and is on a beta negra and I started Eliquis with the thought that he'll probably end up getting cardioverted in the future. I relayed all the information with the patient. I'll send him home. He's intrathecal ibuprofen all though I told him there is a risk of bleeding with Eliquis. I'll have the phone nurses give him some coupons. I talk to the neurologist felt he needed a lumbar puncture and a neurological examination. I'll have our phone nurses set this up and also fill his Eliquis. He'll continue on the beta negra. Brief History: This is a 65-year-old male patient has 4 day history of headaches coming on the left side. He was seen in emergency room 2 days ago and given some medication shots. He was sent home and he came back yesterday still with headache. When he came to the ER the first time he was diagnosed with atrial fib and sent home on some metoprolol. He does have a history of sleep apnea but states he is faithful about using his apparatus. He said recess some dizziness which is a spinning. He has chronic hearing loss and tinnitus but nothing is changed. He denies diplopia, blurred vision, dysphagia, aphasia, lateralizing weakness. He is not a headache suffer he states. He has a little nausea but no vomiting. No family history for migraines. Patient denies any chest pain, shortness of breath or palpitations. - Discharge Data Discharge Date: 09/09/20 Discharge Disposition: Home, Self-Care 01 Condition: Good - Referral to Home Health Primary Care Physician: Hakeem Chávez MD - Discharge Diagnosis/Problem(s) (1) Atrial fibrillation with RVR SNOMED Code(s): 220925067897050 ICD Code: I48.91 - UNSPECIFIED ATRIAL FIBRILLATION Status: Acute Current Visit: Yes (2) Headache disorder SNOMED Code(s): 067398640 ICD Code: R51.9 - HEADACHE, UNSPECIFIED Status: Acute Current Visit: Yes (3) Vertigo SNOMED Code(s): 022404944 ICD Code: R42 - DIZZINESS AND GIDDINESS Status: Acute Current Visit: No (4) Palliative care status SNOMED Code(s): 168617307 ICD Code: Z51.5 - ENCOUNTER FOR PALLIATIVE CARE Status: Acute Current Visit: Yes (5) Leptomeningeal enhancement on MRI of brain SNOMED Code(s): 170466023 ICD Code: R90.89 - OTH ABNORMAL FINDINGS ON DIAGNOSTIC IMAGING OF CNSL Status: Acute Current Visit: Yes - Patient Instructions Diet: Heart Healthy Diet Activity: As Tolerated Driving: May Drive Today Showering/Bathing: May Shower Other/Special Instructions: 1. I will set up a neurological consultation with LP. 2. I will also have our phone nurses set up his Eliquis and then get him a discount card. 3. Recheck with Dr. Harman at the end of the week. - Discharge Plan *PRESCRIPTION DRUG MONITORING PROGRAM REVIEWED*: No *COPY OF PRESCRIPTION DRUG MONITORING REPORT IN PATIENT GINETTE: No Prescriptions/Med Rec: Apixaban [Eliquis] 5 mg PO BID #0 tablet Home Medications: Home Meds Aspirin 81 mg PO DAILY 05/18/16 [History] Sucralfate [Carafate] 1 gm PO QIDACANDBED #20 ml 05/18/16 [Rx] Metoprolol Tartrate [Lopressor] 12.5 mg PO BID #30 tab 09/07/20 [Rx] traMADol [Ultram] 50 mg PO Q6H PRN #20 tab 09/07/20 [Rx] Apixaban [Eliquis] 5 mg PO BID #0 tablet 09/09/20 [Rx] Forms: ED Department Discharge Referrals: Hakeem Chávez MD [Primary Care Provider] - - Discharge Summary/Plan Comment DC Time >30 min.: Yes (Sseeing the patient and discussing the neurology) - Patient Data Vitals - Most Recent: Last Vital Signs Temp 98 F 09/09/20 16:00 Pulse 104 H 09/09/20 16:00 Resp 20 09/09/20 16:00 BP 139/96 H 09/09/20 16:00 Pulse Ox 93 L 09/09/20 16:00 Weight - Most Recent: 299 lb 1.6 oz I&O - Last 24 hours: Intake & Output 09/09/20 09/09/20 09/09/20 06:59 14:59 22:59 Intake Total 989 712 Output Total 0 Balance 989 712 Lab Results - Last 24 hrs: Laboratory Results - last 24 hr 09/08/20 09/09/20 09/09/20 Range/Units 19:17 08:30 08:30 Troponin I 7.7 (4.0-60.3) pg/mL TSH, Ultra Sensitive 3.86 H (0.36-3.74) IU/mL SARS-CoV-2 RNA (EVE) Negative (NEGATIVE) Med Orders - Current: Current Medications Hydrocodone Bitart/Acetaminophen ([place] 325-5 Mg) 1 tab PO Q4H PRN PRN Reason: Pain (moderate 4-6) Last Admin: 09/09/20 14:35 Dose: 1 tab Documented by: Amoxicillin/Clavulanate Potassium (Augmentin 500 Mg\125 Mg) 1 tab PO TID [facility] Last Admin: 09/09/20 13:40 Dose: 1 tab Documented by: Apixaban (Eliquis) 5 mg PO BID [facility] Last Admin: 09/09/20 13:41 Dose: 5 mg Documented by: Aspirin (Aspirin) 81 mg PO DAILY [facility] Last Admin: 09/09/20 09:04 Dose: 81 mg Documented by: Sodium Chloride (Normal Saline) 1,000 mls @ 100 mls/hr IV ASDIRECTED [facility] Last Admin: 09/09/20 16:59 Dose: 100 mls/hr Documented by: Ibuprofen (Motrin) 800 mg PO TID [facility] Last Admin: 09/09/20 13:40 Dose: 800 mg Documented by: Meclizine HCl (Antivert) 25 mg PO Q6H PRN PRN Reason: Dizziness Metoprolol Tartrate (Lopressor) 12.5 mg PO BID [facility] Last Admin: 09/09/20 09:04 Dose: 12.5 mg Documented by: Morphine Sulfate (Morphine) 2 mg IVPUSH Q4H PRN PRN Reason: Pain Last Admin: 09/09/20 14:29 Dose: 2 mg Documented by: Ondansetron HCl (Zofran) 4 mg IV Q4H PRN PRN Reason: Nausea/Vomiting Sucralfate (Carafate) 1 gm PO QIDACANDBED [facility] Last Admin: 09/09/20 17:04 Dose: 1 gm Documented by: Tramadol HCl (Ultram) 50 mg PO Q6H PRN PRN Reason: Headache Last Admin: 09/09/20 06:49 Dose: 50 mg Documented by: Discontinued Medications Diltiazem HCl (Cardizem) 60 mg PO ONETIME ONE Stop: 09/08/20 18:15 Last Admin: 09/08/20 18:30 Dose: 60 mg Documented by: Diltiazem HCl (Cardizem) 30 mg PO Q8H [facility] Diltiazem HCl (Cardizem) 30 mg PO Q8H [facility] Last Admin: 09/09/20 09:04 Dose: 30 mg Documented by: Diphenhydramine HCl (Benadryl) 25 mg IVPUSH ONETIME ONE Stop: 09/08/20 16:03 Last Admin: 09/08/20 16:27 Dose: 25 mg Documented by: Gadoteridol (Prohance) 20 ml IV . DIRECTED ONE Stop: 09/09/20 13:51 Last Admin: 09/09/20 14:18 Dose: 20 ml Documented by: Heparin Sodium (Porcine) (Heparin Sodium) 5,000 units SUBCUT Q8H [facility] Last Admin: 09/09/20 04:24 Dose: 5,000 units Documented by: Hydromorphone HCl (Dilaudid) 0.5 mg IVPUSH ONETIME ONE Stop: 09/08/20 17:03 Last Admin: 09/08/20 17:35 Dose: 0.5 mg Documented by: Sodium Chloride (Normal Saline) 1,000 mls @ 1,000 mls/hr IV .BOLUS ONE Stop: 09/08/20 16:59 Last Admin: 09/08/20 16:24 Dose: 1,000 mls/hr Documented by: Sodium Chloride (Normal Saline) 1,000 mls @ 125 mls/hr IV ASDIRECTED [facility] Ketorolac Tromethamine (Toradol) 30 mg IVPUSH ONETIME ONE Stop: 09/08/20 16:02 Last Admin: 09/08/20 16:31 Dose: 30 mg Documented by: Ketorolac Tromethamine (Toradol) 30 mg IVPUSH Q6H PRN PRN Reason: Pain Stop: 09/14/20 08:06 Last Admin: 09/09/20 09:12 Dose: 30 mg Documented by: Metoclopramide HCl (Reglan) 10 mg IVPUSH ONETIME ONE Stop: 09/08/20 16:02 Last Admin: 09/08/20 16:28 Dose: 10 mg Documented by: Morphine Sulfate (Morphine) 2 mg IVPUSH ONETIME ONE Stop: 09/08/20 18:17 Last Admin: 09/08/20 18:30 Dose: 2 mg Documented by:
[2020-09-09 18:53] VITALS: BP 139/95; PULSE 93
== END 2020-09-09 18:57 | disposition home or self-care (01) | DRG 103 ==
LOC: FB.ED 15:38 → FB.MS 19:17
PROVIDERS: ADMIT Family Medicine; ATTEND Family Medicine
DX: R51.9 Headache, unspecified (principal); Z68.41 Body mass index [BMI] 40.0-44.9, adult; I48.91 Unspecified atrial fibrillation; G47.30 Sleep apnea, unspecified; H91.90 Unspecified hearing loss, unspecified ear; H93.19 Tinnitus, unspecified ear; Z51.5 Encounter for palliative care; Z20.828 Contact with and (suspected) exposure to other viral communicable diseases; Z20.822 Contact with and (suspected) exposure to COVID-19; R90.89 Other abnormal findings on diagnostic imaging of central nervous system; H54.7 Unspecified visual loss; E78.00 Pure hypercholesterolemia, unspecified; M19.90 Unspecified osteoarthritis, unspecified site; E66.9 Obesity, unspecified; J32.9 Chronic sinusitis, unspecified; Z79.82 Long term (current) use of aspirin; Z79.899 Other long term (current) drug therapy; Z99.81 Dependence on supplemental oxygen; Z87.01 Personal history of pneumonia (recurrent); Z90.49 Acquired absence of other specified parts of digestive tract; Z87.891 Personal history of nicotine dependence; Z79.01 Long term (current) use of anticoagulants
CPT/HCPCS: 36415; 80053; 84484; 85025; 93005; A9270; J1170; J1200; J1885; J2270; J2765; J7030; 70544; 70553; 84443; 96374; 96375; 99221; 99239; 99284; 99285-25; A9579; J1644; U0002

== ENCOUNTER 2024-02-29 10:03 | Emergency (ER) | payer MEDICARE, OTHER ==
[2024-02-29 11:12] VITALS: PULSE 56
[2024-02-29] MEDS ORDERED: Sodium Chloride 0.9% 10 ML Syringe FLUSH PRN (11:16)
[2024-02-29 11:32] LABS: BASOPHILS ABSOLUTE AUTO 0.1 x10-3/uL (0.0-0.3); BASOPHILS PERCENT AUTO 1.1 % (0.3-3.8); EOSINOPHILS ABSOLUTE AUTO 0.1 x10-3/uL (0.0-0.6); EOSINOPHILS PERCENT AUTO 1.4 % (0.1-6.8); HEMATOCRIT 48.8 % (38.3-50.1); HEMOGLOBIN 15.5 g/dL (12.9-17.7); LYMPHOCYTES ABSOLUTE AUTO 1.1 x10-3/uL (0.5-4.5); LYMPHOCYTES PERCENT AUTO 17.8 % (15.8-45.3); MEAN CORPUSCULAR HEMOGLOBIN 30.9 pg (27.0-33.3); MEAN CORPUSCULAR HGB CONC 31.8 g/dL (28.7-35.3); MEAN CORPUSCULAR VOLUME 97.4 fL (80.8-98.7); MEAN PLATELET VOLUME 8.4 fL (6.7-11.0); MONOCYTES ABSOLUTE AUTO 0.7 x10-3/uL (0.0-1.2); MONOCYTES PERCENT AUTO 11.6 % (5.5-15.2); NEUTROPHILS ABSOLUTE AUTO 4.2 x10-3/uL (1.7-6.9); NEUTROPHILS PERCENT AUTO 68.1 % (40.3-71.8); PLATELET COUNT,PLT 238 x10(3)uL (117-477); RED BLOOD CELL COUNT 5.01 x10(6)uL (3.90-5.90); RED CELL DISTRIBUTION WIDTH 16.3 % (12.4-15.0); WHITE BLOOD CELL COUNT,WBC 6.2 x10-3/uL (3.2-10.1)
[2024-02-29 11:39] LABS: BASE EXCESS VENOUS,POC 4 mmol/L (-2 - 3+); BLOOD UREA NITROGEN,BUN 14 mg/dL (7-18); CALCIUM 8.4 mg/dL (8.6-10.2); CARBON DIOXIDE,CO2 32 mmol/L (21-32); CREATININE 0.7 mg/dL (0.70-1.30); EST CRCL DRUG DOSING (CG) 89.88 mL/min; ESTIMATED GFR 100 mL/min (>60); GLUCOSE RANDOM 97 mg/dL (80-116); PCO2 VENOUS,POC 52 mmHg (41-51); PH VENOUS,POC 7.38 pH Units (7.32-7.43)
[2024-02-29 11:44] LABS: INR 1.12 (1.00-1.24); PROTHROMBIN TIME 11.5 sec (9.0-11.1)
[2024-02-29 11:45] LABS: A/G RATIO 0.6; ALANINE AMINOTRANSFERASE,ALT 33 U/L (12-36); ALBUMIN 2.7 g/dL (3.2-4.6); ALKALINE PHOSPHATASE 70 IU/L (56-112); BILIRUBIN TOTAL 0.7 mg/dL (0.1-1.3); PROTEIN TOTAL,TP 6.9 g/dL (6.0-8.0)
[2024-02-29 11:46] LABS: PTT,PARTIAL THROMBOPLSTIN TIME 24.4 SECONDS (24.4-33.2)
[2024-02-29 11:52] LABS: TROPONIN I 8.9 pg/mL (4.0-60.3)
[2024-02-29 11:57] LABS: ASPARTATE AMNIOTRANSFERASE,AST 21 IU/L (5-25); CHLORIDE,CL 106 mmol/L (100-110); POTASSIUM,K 4.6 mmol/L (3.5-5.3); SODIUM,NA 142 mmol/L (135-145)
[2024-02-29] MEDS: Iopamidol 755 Mg/ML 100 ML Bottle IV SCH (12:28)
[2024-02-29] MEDS: Gadoteridol 279.3 MG/ML 20 ML SDV IV ONE (14:38)
[2024-02-29] MEDS: Albuterol/Ipratropium 3.0-0.5 MG/3 ML Neb Soln NEB ONE (14:50)
[2024-02-29 15:56] VITALS: BP 134/64
== END 2024-02-29 15:51 | disposition home or self-care (01) ==
LOC: FB.ED 10:03
DX: R51.9 Headache, unspecified (principal); R06.02 Shortness of breath; E78.00 Pure hypercholesterolemia, unspecified; Z79.82 Long term (current) use of aspirin; Z79.51 Long term (current) use of inhaled steroids; Z79.899 Other long term (current) drug therapy; Z87.891 Personal history of nicotine dependence; Z79.01 Long term (current) use of anticoagulants
CPT/HCPCS: 36415; 70553; 71045; 71275; 80053; 83880; 84484; 85025; 85610; 85730; 93005; 94640; 99285; A9579; J7620; Q9967

== ENCOUNTER 2024-10-03 06:46 | Day surgery (SDC) | payer MEDICARE, OTHER ==
[~2024-10-03 06:46] MED LIST: Lactated Ringers 1,000 ML IV PRN; Sodium Chloride 0.9% 10 ML Syringe FLUSH PRN
[2024-10-03] MEDS ORDERED: fentaNYL 100 MCG/2 ML SDV IV ONE (06:47)
[2024-10-03] MEDS ORDERED: Sodium Chloride 0.9% 10 ML Syringe IV ONE (06:47)
[2024-10-03] MEDS ORDERED: Midazolam 1 MG/ML 2 ML SDV IV ONE (06:47)
[2024-10-03] MEDS: acetaZOLAMIDE 500 MG Cap.ER PO ONE (08:56)
[2024-10-03 10:52] VITALS: BP 131/51; PULSE 63
== END 2024-10-03 09:05 | disposition home or self-care (01) ==
LOC: FB.SDS 06:46
PROVIDERS: ATTEND Ophthalmology
DX: H25.013 Cortical age-related cataract, bilateral (principal); I11.0 Hypertensive heart disease with heart failure; I50.32 Chronic diastolic (congestive) heart failure; I48.0 Paroxysmal atrial fibrillation; E66.01 Morbid (severe) obesity due to excess calories; Z87.891 Personal history of nicotine dependence; Z68.44 Body mass index [BMI] 60.0-69.9, adult
CPT/HCPCS: 66984; A9270; J2250; J3010; V2632; 00142; 99100

== ENCOUNTER 2025-05-04 22:27 | Emergency (ER) | payer MEDICARE, OTHER ==
[2025-05-04] MEDS ORDERED: Sodium Chloride 0.9% 10 ML Syringe FLUSH PRN (22:56)
[2025-05-04] MEDS: Furosemide 40 MG/4 ML VIAL IVPUSH ONE (23:04)
[2025-05-04 23:10] LABS: BASOPHILS ABSOLUTE AUTO 0.0 x10-3/uL (0.0-0.3); EOSINOPHILS ABSOLUTE AUTO 0.0 x10-3/uL (0.0-0.6); MONOCYTES ABSOLUTE AUTO 0.9 x10-3/uL (0.0-1.2); MONOCYTES PERCENT AUTO 10.3 % (5.5-15.2); PLATELET COUNT,PLT 214 x10(3)uL (117-477)
[2025-05-04 23:11] LABS: BASOPHILS PERCENT AUTO 0.4 % (0.3-3.8); BLOOD UREA NITROGEN,BUN 26 mg/dL (7-18); CARBON DIOXIDE,CO2 35 mmol/L (21-32); CHLORIDE,CL 103 mmol/L (100-110); CREATININE 1.1 mg/dL (0.70-1.30); EOSINOPHILS PERCENT AUTO 0.6 % (0.1-6.8); ESTIMATED GFR 72 mL/min (>60); GLUCOSE RANDOM 148 mg/dL (80-116); LYMPHOCYTES ABSOLUTE AUTO 1.5 x10-3/uL (0.5-4.5); LYMPHOCYTES PERCENT AUTO 17.4 % (15.8-45.3); MEAN PLATELET VOLUME 8.5 fL (6.7-11.0); NEUTROPHILS ABSOLUTE AUTO 6.1 x10-3/uL (1.7-6.9); NEUTROPHILS PERCENT AUTO 71.3 % (40.3-71.8); POTASSIUM,K 3.9 mmol/L (3.5-5.3); RED BLOOD CELL COUNT 5.05 x10(6)uL (3.90-5.90); RED CELL DISTRIBUTION WIDTH 15.9 % (12.4-15.0); SODIUM,NA 141 mmol/L (135-145); WHITE BLOOD CELL COUNT,WBC 8.6 x10-3/uL (3.2-10.1)
[2025-05-04 23:14] LABS: INR 1.21 (1.00-1.24)
[2025-05-04 23:16] LABS: A/G RATIO 0.8; ALANINE AMINOTRANSFERASE,ALT 59 U/L (12-36); ASPARTATE AMNIOTRANSFERASE,AST 35 IU/L (5-25); BILIRUBIN TOTAL 0.5 mg/dL (0.1-1.3); PROTEIN TOTAL,TP 6.8 g/dL (6.0-8.0)
[2025-05-04 23:25] LABS: PRO B-TYPE NATRIUR PEPT,BNPPRO 6343.0 pg/mL (<=125)
[2025-05-05 05:08] VITALS: BP 111/71; PULSE 56
== END 2025-05-05 01:10 ==
LOC: FB.ED 22:27
DX: I21.4 Non-ST elevation (NSTEMI) myocardial infarction (principal); I50.9 Heart failure, unspecified; I48.91 Unspecified atrial fibrillation; E78.00 Pure hypercholesterolemia, unspecified; E66.9 Obesity, unspecified; Z90.49 Acquired absence of other specified parts of digestive tract; Z87.891 Personal history of nicotine dependence; Z79.01 Long term (current) use of anticoagulants; Z79.899 Other long term (current) drug therapy
CPT/HCPCS: 36415; 71045; 80053; 83880; 84484; 85025; 85610; 86140; 93005; 93010; 96374; 99285; J1938